=== PATIENT | female | born 1950 | race Caucasian/White ===

== ENCOUNTER 2019-12-31 09:09 | Inpatient (IN) ==
[2019-12-31] MEDS ORDERED: NS 0.9% 1000 ml BAG 1,000 ML IV ONE ×2 (09:17→11:58)
[2019-12-31 10:10] LABS: ABS Lymphocytes 0.5 10^3/ul (1.0-4.8); ABS Monocytes 0.8 10^3/ul (0-0.8); ABS Neutrophils 7.2 10^3/ul (1.5-7.7); Eosinophil % 0.2 %; Hematocrit 33 % (35-47); Hemoglobin 11.3 g/dL (12.0-16.0); Lymphocyte % 5.5 %; Mean Corpuscular HGB Conc 35 g/dL (31-36); Mean Corpuscular Hemoglobin 33 pg (27-31); Mean Corpuscular Volume 95 fL (80-97); Mean Platelet Volume 9.8 fL (7.4-10.4); Platelet Count 134 10^3/uL (150-450); Red Blood Count 3.44 10^6 /uL (3.70-4.87); Red Cell Distribution Width 13 % (10-15); White Blood Count 8.5 10^3/uL (3.5-10.8)
[2019-12-31 10:32] LABS: Troponin I 0.05 ng/mL (<0.03)
[2019-12-31 10:38] LABS: ALT 136 U/L (7-52); AST 113 U/L (13-39); Albumin 3.5 g/dL (3.2-5.2); Alkaline Phosphatase 249 U/L (34-104); Anion Gap 9 mmol/L (2-11); BUN/Creatinine Ratio 33.7 (8-20); Blood Urea Nitrogen 34 mg/dL (6-24); CO2 Carbon Dioxide 26 mmol/L (22-32); Calcium 8.3 mg/dL (8.6-10.3); Chloride 102 mmol/L (101-111); EGFR African American 65.6 (>60); EGFR Non-African American 54.2 (>60); Globulin 3.6 g/dL (2-4); Glucose 129 mg/dL (70-100); Potassium 3.6 mmol/L (3.5-5.0); Sodium 137 mmol/L (135-145); Total Protein 7.1 g/dL (6.4-8.9)
[2019-12-31 10:39] LABS: TSH Ultra Thyroid Stim Horm 0.86 mcIU/mL (0.34-5.60)
[2019-12-31 11:30] LABS: Urine Appearance Cloudy; Urine Bilirubin Negative (Negative); Urine Blood 2+ (Negative); Urine Color Yellow; Urine Glucose Negative (Negative); Urine Ketones Trace (Negative); Urine Nitrite Positive (Negative); Urine Protein 2+(100 mg/dL) (Negative); Urine Specific Gravity 1.014 (1.010-1.030); Urine Urobilinogen Negative (Negative)
[2019-12-31 11:36] LABS: INR 1.05 (0.82-1.09)
[2019-12-31 11:46] LABS: Urine Bacteria 1+ (Absent); Urine Red Blood Cell 1+(3-5/hpf) (Absent); Urine Squamous Epithelial Cell Present (Absent); Urine White Blood Cell 3+(>20/hpf) (Absent)
[2019-12-31 11:50] LABS: Lipase 10 U/L (11.0-82.0)
[2019-12-31] MEDS ORDERED: cefTRIAXone 1 gm/50 mL NS BAG 1 GM/50 ML BAG IV ONE (11:59)
[2019-12-31 13:55] LABS: Troponin I 0.06 ng/mL (<0.03)
[2019-12-31] MEDS ORDERED: guaiFENesin 100 mg/5 ml LIQ unit dose cup PO PRN (14:20)
[2019-12-31] MEDS ORDERED: Ondansetron 4 mg VIAL 2 MG/ML 2 ml VIAL IV PRN (14:23)
[2019-12-31] MEDS ORDERED: Al Hydrox/Mg Hydrox/Simet LIQ 30 ML UDC PO PRN (14:23)
[2019-12-31 17:40] LABS: Troponin I 0.07 ng/mL (<0.03)
[2019-12-31 18:29] LABS: Anion Gap 9 mmol/L (2-11); CO2 Carbon Dioxide 26 mmol/L (22-32); Calcium 8.3 mg/dL (8.6-10.3); Chloride 103 mmol/L (101-111); Potassium 3.8 mmol/L (3.5-5.0); Sodium 138 mmol/L (135-145)
[2019-12-31 18:35] LABS: BUN/Creatinine Ratio 31.1 (8-20); Blood Urea Nitrogen 32 mg/dL (6-24); EGFR African American 64.1 (>60); Glucose 116 mg/dL (70-100)
[2019-12-31] MEDS: PHENobarbital 100 mg TAB PO SCH (22:48)
[2019-12-31] MEDS: Heparin 5000 UNITS/ML 1 mL VIAL SUBCUT SCH (22:49)
[2019-12-31] MEDS: Nystatin TOP POWDER 15 GM BTL TOPICAL SCH (22:49)
[2020-01-01] MEDS: Heparin 5000 UNITS/ML 1 mL VIAL SUBCUT SCH (05:56)
[2020-01-01 06:02] LABS: Hematocrit 34 % (35-47); Hemoglobin 11.4 g/dL (12.0-16.0); Mean Corpuscular HGB Conc 33 g/dL (31-36); Mean Corpuscular Hemoglobin 33 pg (27-31); Mean Corpuscular Volume 101 fL (80-97); Mean Platelet Volume 9.9 fL (7.4-10.4); Platelet Count 114 10^3/uL (150-450); Red Blood Count 3.41 10^6 /uL (3.70-4.87); Red Cell Distribution Width 13 % (10-15); White Blood Count 7.3 10^3/uL (3.5-10.8)
[2020-01-01 06:05] LABS: Albumin 3.4 g/dL (3.2-5.2); Anion Gap 9 mmol/L (2-11); CO2 Carbon Dioxide 21 mmol/L (22-32); Calcium 7.8 mg/dL (8.6-10.3); Chloride 105 mmol/L (101-111); Potassium 4.1 mmol/L (3.5-5.0); Sodium 135 mmol/L (135-145)
[2020-01-01 06:11] LABS: ALT 145 U/L (7-52); AST 131 U/L (13-39); Alkaline Phosphatase 253 U/L (34-104); Blood Urea Nitrogen 32 mg/dL (6-24); EGFR African American 71.2 (>60); EGFR Non-African American 58.9 (>60); Globulin 3.3 g/dL (2-4); Glucose 124 mg/dL (70-100); Total Protein 6.7 g/dL (6.4-8.9)
[2020-01-01 06:23] LABS: Troponin I 0.03 ng/mL (<0.03)
[2020-01-01 09:20] LABS: ABS Eosinophils 0.2 10^3/ul (0-0.6); ABS Lymphocytes 0.9 10^3/ul (1.0-4.8); ABS Monocytes 0.8 10^3/ul (0-0.8); ABS Neutrophils 5.4 10^3/ul (1.5-7.7); Eosinophil % 2.3 %; Lymphocyte % 11.9 %
[2020-01-01] MEDS: Nystatin TOP POWDER 15 GM BTL TOPICAL SCH ×2 (09:22→20:12)
[2020-01-01] MEDS: cefTRIAXone 1 gm/50 mL NS BAG 1 GM/50 ML BAG IVPB SCH (12:00)
[2020-01-01 12:28] LABS: Vitamin B12 360 pg/mL (180-914)
[2020-01-01] MEDS: Enoxaparin 40 MG/0.4 ML SYR SUBCUT SCH (12:34)
[2020-01-01 12:37] LABS: Hepatitis B Surface Antigen Nonreactive (Nonreactive)
[2020-01-01 12:42] LABS: Hepatitis A Ab IgM Negative (Negative); Hepatitis B Core IgM Nonreactive (Nonreactive)
[2020-01-01 12:54] LABS: Hepatitis C Antibody Negative (Negative)
[2020-01-01] MEDS ORDERED: NS 0.9% 1000 ml BAG 1,000 ML IV SCH (16:30)
[2020-01-01 16:55] LABS: Creatine Kinase 574 U/L (10-223)
[2020-01-01] MEDS: PHENobarbital 100 mg TAB PO SCH (20:11)
[2020-01-02 06:47] LABS: ABS Eosinophils 0.3 10^3/ul (0-0.6); ABS Monocytes 0.6 10^3/ul (0-0.8); ABS Neutrophils 3.9 10^3/ul (1.5-7.7); Eosinophil % 5.3 %; Hematocrit 34 % (35-47); Hemoglobin 11.3 g/dL (12.0-16.0); Lymphocyte % 17.2 %; Mean Corpuscular HGB Conc 34 g/dL (31-36); Mean Corpuscular Hemoglobin 33 pg (27-31); Mean Corpuscular Volume 97 fL (80-97); Mean Platelet Volume 10.3 fL (7.4-10.4); Nucleated Red Blood Cells % 0.1; Platelet Count 137 10^3/uL (150-450); Red Blood Count 3.45 10^6 /uL (3.70-4.87); Red Cell Distribution Width 13 % (10-15); White Blood Count 5.9 10^3/uL (3.5-10.8)
[2020-01-02 07:02] LABS: Albumin 3.1 g/dL (3.2-5.2); Albumin/Globulin Ratio 0.9 (1-3); BUN/Creatinine Ratio 32.1 (8-20); Calcium 7.8 mg/dL (8.6-10.3); EGFR African American 81.1 (>60); Globulin 3.5 g/dL (2-4); Potassium 4.2 mmol/L (3.5-5.0); Total Bilirubin 0.7 mg/dL (0.2-1.0); Total Protein 6.6 g/dL (6.4-8.9)
[2020-01-02] MEDS: cefTRIAXone 1 gm/50 mL NS BAG 1 GM/50 ML BAG IVPB SCH ×2 (11:37→11:56)
[2020-01-02] MEDS: Nystatin TOP POWDER 15 GM BTL TOPICAL SCH ×2 (11:56→20:39)
[2020-01-02] MEDS: Enoxaparin 40 MG/0.4 ML SYR SUBCUT SCH (13:33)
[2020-01-02] MEDS ORDERED: Perflutren Lipid Microsphere 3 ML VIAL ONE (15:53)
[2020-01-02] MEDS: PHENobarbital 100 mg TAB PO SCH (20:39)
[2020-01-03 07:34] LABS: Albumin 3.1 g/dL (3.2-5.2); Albumin/Globulin Ratio 0.9 (1-3); BUN/Creatinine Ratio 29.3 (8-20); Calcium 8.1 mg/dL (8.6-10.3); EGFR African American 92.4 (>60); EGFR Non-African American 76.4 (>60); Globulin 3.5 g/dL (2-4); Potassium 4.5 mmol/L (3.5-5.0); Total Bilirubin 0.5 mg/dL (0.2-1.0); Total Protein 6.6 g/dL (6.4-8.9)
[2020-01-03] MEDS: Nystatin TOP POWDER 15 GM BTL TOPICAL SCH (08:50)
[2020-01-03] MEDS: cefTRIAXone 1 gm/50 mL NS BAG 1 GM/50 ML BAG IVPB SCH (11:25)
[2020-01-03 12:20] VITALS: BP 142/67
== END 2020-01-03 13:00 | DRG 690 ==
LOC: ED 09:09 → MED 09:09
PROVIDERS: ADMIT Pediatrics; ATTEND Internal Medicine

== ENCOUNTER 2020-07-08 17:26 | Inpatient (IN) ==
[2020-07-08 20:48] LABS: ABS Lymphocytes 0.8 10^3/ul (1.0-4.8); ABS Monocytes 0.9 10^3/ul (0-0.8); Eosinophil % 0.3 %; Hematocrit 32 % (35-47); Hemoglobin 11.2 g/dL (12.0-16.0); Lymphocyte % 8.9 %; Mean Corpuscular HGB Conc 35 g/dL (31-36); Mean Corpuscular Hemoglobin 32 pg (27-31); Mean Corpuscular Volume 93 fL (80-97); Platelet Count 176 10^3/uL (150-450); Red Blood Count 3.48 10^6 /uL (3.70-4.87); Red Cell Distribution Width 13 % (10-15); White Blood Count 8.7 10^3/uL (3.5-10.8)
[2020-07-08 20:53] LABS: Urine Appearance Cloudy; Urine Bilirubin Negative (Negative); Urine Blood 2+ (Negative); Urine Color Amber; Urine Glucose Negative (Negative); Urine Ketones Negative (Negative); Urine Nitrite Positive (Negative); Urine Protein 2+(100 mg/dL) (Negative); Urine Specific Gravity 1.013 (1.002-1.030); Urine Urobilinogen Negative (Negative)
[2020-07-08 20:59] LABS: Urine Bacteria 1+ (Absent); Urine Red Blood Cell 2+(6-10/hpf) (Absent); Urine Squamous Epithelial Cell Present (Absent); Urine White Blood Cell 3+(>20/hpf) (Absent)
[2020-07-08 21:08] LABS: ALT 193 U/L (7-52); AST 112 U/L (13-39); Albumin 3.7 g/dL (3.2-5.2); Albumin/Globulin Ratio 1.1 (1-3); Alkaline Phosphatase 196 U/L (34-104); Anion Gap 8 mmol/L (2-11); Blood Urea Nitrogen 24 mg/dL (6-24); C Reactive Protein 198.75 mg/L (<8.01); CO2 Carbon Dioxide 27 mmol/L (22-32); Calcium 8.2 mg/dL (8.6-10.3); Chloride 89 mmol/L (101-111); EGFR African American 69.5 (>60); EGFR Non-African American 57.5 (>60); Globulin 3.4 g/dL (2-4); Glucose 130 mg/dL (70-100); Lipase < 10 U/L (11.0-82.0); Magnesium 1.9 mg/dL (1.9-2.7); Potassium 3.8 mmol/L (3.5-5.0); Sodium 124 mmol/L (135-145); Total Protein 7.1 g/dL (6.4-8.9)
[2020-07-08] MEDS ORDERED: cefTRIAXone 1 gm/50 mL NS BAG 1 GM/50 ML BAG IV ONE (21:15)
[2020-07-08 21:17] LABS: Troponin I 0.03 ng/mL (<0.03)
[2020-07-09 03:37] LABS: TSH Ultra Thyroid Stim Horm 1.18 mcIU/mL (0.34-5.60)
[2020-07-09 05:52] LABS: ABS Eosinophils 0.1 10^3/ul (0-0.6); ABS Lymphocytes 0.7 10^3/ul (1.0-4.8); ABS Monocytes 0.8 10^3/ul (0-0.8); ABS Neutrophils 6.7 10^3/ul (1.5-7.7); Eosinophil % 0.8 %; Hematocrit 33 % (35-47); Hemoglobin 11.2 g/dL (12.0-16.0); Lymphocyte % 8.6 %; Mean Corpuscular HGB Conc 35 g/dL (31-36); Mean Corpuscular Hemoglobin 32 pg (27-31); Mean Corpuscular Volume 92 fL (80-97); Mean Platelet Volume 8.8 fL (7.4-10.4); Platelet Count 177 10^3/uL (150-450); Red Blood Count 3.53 10^6 /uL (3.70-4.87); Red Cell Distribution Width 13 % (10-15); White Blood Count 8.3 10^3/uL (3.5-10.8)
[2020-07-09 06:10] LABS: Calcium 8.3 mg/dL (8.6-10.3); EGFR African American 71.2 (>60); EGFR Non-African American 58.9 (>60); Potassium 3.9 mmol/L (3.5-5.0)
[2020-07-09 07:10] LABS: Carbamazepine 6.4 mcg/mL (4.0-12.0)
[2020-07-09] MEDS: Enoxaparin 40 MG/0.4 ML SYR SUBCUT SCH (08:59)
[2020-07-09] MEDS ORDERED: cefTRIAXone 1 gm/50 mL NS BAG 1 GM/50 ML BAG IVPB SCH (21:00)
[2020-07-09] MEDS ORDERED: PHENobarbital 100 mg TAB PO SCH (21:00)
[2020-07-10 05:49] LABS: ABS Eosinophils 0.1 10^3/ul (0-0.6); ABS Lymphocytes 0.7 10^3/ul (1.0-4.8); ABS Monocytes 0.9 10^3/ul (0-0.8); ABS Neutrophils 4.6 10^3/ul (1.5-7.7); Eosinophil % 1.3 %; Hematocrit 32 % (35-47); Hemoglobin 11.2 g/dL (12.0-16.0); Lymphocyte % 11.3 %; Mean Corpuscular HGB Conc 35 g/dL (31-36); Mean Corpuscular Hemoglobin 32 pg (27-31); Mean Corpuscular Volume 91 fL (80-97); Mean Platelet Volume 8.5 fL (7.4-10.4); Platelet Count 183 10^3/uL (150-450); Red Blood Count 3.48 10^6 /uL (3.70-4.87); Red Cell Distribution Width 13 % (10-15); White Blood Count 6.3 10^3/uL (3.5-10.8)
[2020-07-10 06:05] LABS: Albumin 3.3 g/dL (3.2-5.2); Calcium 8.4 mg/dL (8.6-10.3); EGFR African American 78.9 (>60); EGFR Non-African American 65.2 (>60); Globulin 3.4 g/dL (2-4); Potassium 3.8 mmol/L (3.5-5.0); Total Protein 6.7 g/dL (6.4-8.9)
[2020-07-10 07:31] VITALS: BP 113/50
[2020-07-10] MEDS: Enoxaparin 40 MG/0.4 ML SYR SUBCUT SCH (09:23)
[2020-07-10] MEDS ORDERED: Zinc Oxide 16% PASTE (Butt Paste) 30 gm TUBE TOPICAL PRN (09:42)
[2020-07-10 10:45] LABS: Calcium 8.1 mg/dL (8.6-10.3); EGFR African American 78.9 (>60); EGFR Non-African American 65.2 (>60); Potassium 3.5 mmol/L (3.5-5.0)
== END 2020-07-10 14:10 | disposition home or self-care (01) | DRG 690 ==
LOC: ED 17:26 → MED 17:26
PROVIDERS: ADMIT Internal Medicine; ATTEND Internal Medicine